=== PATIENT | female | born 1955 | race Caucasian/White ===

== ENCOUNTER 2017-01-31 17:25 | Emergency (ER) | payer OTHER ==
[~2017-01-31] VITALS: Ht 154.9 cm; Wt 77.1 kg
[2017-01-31 17:54] VITALS: BP_SYST 153
[2017-01-31 20:45] VITALS: BP_SYST 152
== END 2017-01-31 20:45 | disposition home or self-care (01) ==
LOC: SED 17:25
DX: L03.116 Cellulitis of left lower limb (principal)
CPT/HCPCS: 93971; 99284